=== PATIENT | male | born 2000 | race Two or more races ===

== ENCOUNTER 2024-09-05 17:44 | Emergency (ER) | payer OTHER ==
[~2024-09-05] VITALS: Ht 193 cm; Wt 90.7 kg
[2024-09-05] MEDS ORDERED: CELEXA10 MG PO (17:58)
[2024-09-05] MEDS ORDERED: LAMICTAL5 MG PO (17:59)
[2024-09-05] MEDS ORDERED: WELLBUTRIN XL300 MG PO (17:59)
[2024-09-05 18:02] VITALS: BP 125/80; O2SAT 98
[2024-09-05] MEDS ORDERED: CLINDAMYCIN PHOSPHATE 150 MG/ML (600mg) IM STA (19:37)
[2024-09-05] MEDS ORDERED: CLINDAMYCIN PHOSPHATE 150 MG/ML (300mg) ONE (19:42)
== END 2024-09-05 20:23 | disposition home or self-care (01) ==
LOC: ER 17:46
DX: L02.222 Furuncle of back [any part, except buttock and flank] (principal)

== ENCOUNTER → 2024-09-23 | Emergency (ER) | payer OTHER ==
[~2024-09-23] MED LIST: CELEXA10 MG PO; LAMICTAL5 MG PO; WELLBUTRIN XL300 MG PO
== END | disposition left against medical advice (07) ==
LOC: ER 11:13
DX: Z53.21 Procedure and treatment not carried out due to patient leaving prior to being seen by health care provider (principal)